=== PATIENT | male | born 1965 | race Hispanic/Latino ===

== ENCOUNTER 2021-06-02 21:32 | Emergency (ER) | payer MEDICAID ==
[~2021-06-02] VITALS: Ht 170.2 cm; Wt 50.3 kg
[2021-06-02 22:56] VITALS: BP 156/83
== END 2021-06-03 00:12 | disposition home or self-care (01) ==
LOC: EDH 21:32
DX: Z00.00 Encounter for general adult medical examination without abnormal findings (principal); R05.9 Cough, unspecified
CPT/HCPCS: 71250; 74176